=== PATIENT | male | born 1955 | race Caucasian/White ===

== ENCOUNTER 2018-07-06 14:28 | Outpatient (CLI) | payer MEDICARE, BC ==
--- NOTE | 2018-07-06 16:24 | MRI ---
RIGHT SHOULDER MRI WITHOUT IV CONTRAST: 07/06/18 HISTORY: Right shoulder pain limited and painful range of motion since falling out of his pickup truck. Multiplanar and multisequence MRI examination of the right shoulder is performed. AC joint arthrosis changes are noted with subchondral cystic changes and minimal undersurface spurrin g of the distal clavicle. There is some fluid and fat stranding in the subacromial and subdeltoid bur sa. There is a transverse full thickness near full width tear of the supraspinatus tendon but no sign ificant retraction. This tear appears to extend posteriorly into the infraspinatus tendon as a partia l thickness undersurface tear. There is associated delamination and a prominent myotendinous sentinel cyst of the supraspinatus. Evidence for a split type tear of the biceps tendon at the level of the u pper bicipital groove with thickening and increased signal in the intra-articular portion of the olimpia ps tendon at the biceps anchor. Evidence for significant tendinopathy. Undersurface tear of the subsc apularis tendon. IMPRESSION: Irregular full thickness, near full width tear of the supraspinatus tendon without significant retra ction with a small undersurface infraspinatus tendon tear with a prominent sentinel cyst of the supra spinatus myotendinous region. Split type tear of the biceps tendon at the upper bicipital groove with thickening and increased signal in the intra-articular region, evidence for associated tendinopathy . Undersurface tear of the subscapularis tendon. AC joint arthrosis. No acute osteochondral defect. POS: OFF
== END 2018-07-06 14:29 | disposition home or self-care (01) ==
LOC: BICMRI 14:28
PROVIDERS: ATTEND Orthopaedic Surgery
DX: M25.511 Pain in right shoulder (principal); M75.121 Complete rotator cuff tear or rupture of right shoulder, not specified as traumatic; S46.211A Strain of muscle, fascia and tendon of other parts of biceps, right arm, initial encounter

== ENCOUNTER 2018-07-13 11:49 | Outpatient (CLI) | payer MEDICARE, BC ==
[2018-07-13 13:39] LABS: #Basophils 0.1 thou/uL (0.0-0.2); #Eosinphils 0.5 thou/uL (0.0-0.7); #Lymphocytes 2.4 thou/uL (1.20-3.40); #Monocytes 0.7 thou/uL (0.11-0.59); #Neutrophils 4.4 thou/uL (1.40-6.50); %Basophils 0.8 % (0.0-1.0); %Eosinophils 6.2 % (0.0-10.0); %Lymphocytes 29.8 % (21.0-51.0); %Monocytes 8.9 % (0.0-10.0); %Neutrophils 54.3 % (42.0-75.0); Hemoglobin 14.4 g/dL (14.0-18.0); Mean Corpuscular HGB CONC 33.6 g/dL (32.0-36.0); Mean Corpuscular Hemoglobin 30.1 pg (27.0-31.0); Mean Corpuscular Volume 89.5 fL (78.0-98.0); Mean Platelet Volume 7.2 fL (7.4-10.4); Platelet Count 282 thou/uL (130-400); RBC Distribution Width 11.2 % (11.5-14.5); Red Blood Cell (RBC) Count 4.79 mill/uL (4.70-6.10); White Blood Cell (WBC) Count 8.1 thou/uL (4.8-10.8)
[2018-07-13 14:00] LABS: Anion Gap 13 mmol/L (10-20); BUN (Urea Nitrogen) 17 mg/dL (8.4-25.7); Calc. Creatinine Clearance 0 mL/min (70-130); Calcium 10.3 mg/dL (7.8-10.44); Carbon Dioxide 26 mmol/L (23-31); Chloride 104 mmol/L (98-107); Estimated GFR-MDRD 58; Glucose 97 mg/dL (80-115); Potassium 4.4 mmol/L (3.5-5.1); Sodium 139 mmol/L (136-145)
== END 2018-07-13 11:50 | disposition home or self-care (01) ==
LOC: LABBT 11:49
PROVIDERS: ATTEND Orthopaedic Surgery
DX: Z01.818 Encounter for other preprocedural examination (principal); M75.101 Unspecified rotator cuff tear or rupture of right shoulder, not specified as traumatic
CPT/HCPCS: 80048; 85025; 93005; 93010

== ENCOUNTER 2018-07-29 07:19 | Day surgery (SDC) | payer MEDICARE, BC ==
[2018-07-13 12:04] VITALS: BMI 32.3
[2018-07-29] MEDS ORDERED: Midazolam HCl 2 mg/2 ml Vial ONE (07:45)
[2018-07-29] MEDS ORDERED: Fentanyl 100 MCG/2 ML VIAL ONE (07:46)
[2018-07-29] MEDS ORDERED: CEFAZOLIN 2 GM/50 ML BAG ONE (08:16)
[2018-07-29] MEDS ORDERED: Zolpidem Tartrate 5 MG TAB PO PRN (09:01)
[2018-07-29] MEDS ORDERED: Ketorolac Tromethamine 30 MG/ML VIAL IVP PRN (09:01)
[2018-07-29] MEDS ORDERED: traMADol HCl 50 MG TAB PO PRN ×2 (09:01)
[2018-07-29] MEDS ORDERED: HYDROcodone/Acetaminophen 5/325 mg Tablet PO PRN ×2 (09:01)
[2018-07-29] MEDS ORDERED: Ondansetron PF 4 MG/2 ML Vial IVP PRN (09:01)
[2018-07-29] MEDS ORDERED: Promethazine HCl 25 MG/ML VIAL IM PRN (09:01)
[2018-07-29] MEDS ORDERED: Bupivacaine 0.5% 50 ML in Sodium Chloride 0.9% 50 ML NERVE BLCK SCH (09:01)
[2018-07-29] MEDS ORDERED: Ropivacaine 0.2% 550 ML 550 ML NERVE BLCK SCH (09:03)
[2018-07-29] MEDS ORDERED: Ropivacaine 0.5% HCl/PF (150 MG/30 ML VIAL) ONE (11:33)
[2018-07-29] MEDS ORDERED: Ropivacaine 0.2% HCl/PF 20 ML ONE (11:35)
--- NOTE | 2018-07-29 13:05 | OP ---
DATE OF PROCEDURE: 07/29/2018 PROCEDURE: Right shoulder arthroscopic rotator cuff repair. PREOPERATIVE DIAGNOSIS: possible biceps tendon tear. POSTOPERATIVE DIAGNOSIS: Intact biceps tendon, rotator cuff tear. ANESTHESIA: General. ESTIMATED BLOOD LOSS: Minimal. SPECIMENS: None. DRAINS: None. COMPLICATIONS: None. DESCRIPTION OF PROCEDURE: The patient was taken to the operating room, where general anesthesia was induced. The patient was placed in left lateral decubitus position. Right arm was placed in 15 pounds of traction, prepped and draped in usual sterile fashion. The scope was placed in the glenohumeral joint. He had no significant arthritis. He had a full-thickness rotator cuff tear. His biceps tendon was probed and appeared to be stable, so I left this alone. I did not see a need for biceps tenodesis. The scope for placed in the subacromial bursa and performed the subacromial bursectomy. CA ligament was taken down. The subacromial space was decompressed. I freshened the rotator cuff and I freshened the greater tuberosity. Two [place] suture anchors were placed at the greater tuberosity, passed the rotator cuff and tied down with a good watertight repair. Shoulder was then drained. Portals were closed with nylon suture. Sterile dressings were applied. Job ID: [id number]
[2018-07-29] MEDS ORDERED: PROPOFOL 200 MG/20 ML VIAL ONE (15:44)
[2018-07-29] MEDS ORDERED: Ketorolac Tromethamine 30 MG/ML VIAL ONE (15:44)
[2018-07-29] MEDS ORDERED: Glycopyrrolate 0.2 MG/ML 5 ML SYRINGE ONE (15:44)
[2018-07-29] MEDS ORDERED: Dexamethasone 20 MG/5 ML VIAL ONE (15:44)
[2018-07-29] MEDS ORDERED: Lidocaine 1% PF 5 ML VIAL ONE (15:44)
[2018-07-29] MEDS ORDERED: Ondansetron PF 4 MG/2 ML Vial ONE (15:44)
[2018-07-29] MEDS ORDERED: Rocuronium Bromide 10 MG/ML (10ML VIAL) ONE (15:44)
== END 2018-07-29 13:25 | disposition home or self-care (01) ==
LOC: SDC 07:19
PROVIDERS: ATTEND Orthopaedic Surgery
PROC: 0LM14ZZ Reattachment of Right Shoulder Tendon, Percutaneous Endoscopic Approach (ICD-10-PCS; principal; 2018-07-29)
PROC: 0RHJ44Z Insertion of Internal Fixation Device into Right Shoulder Joint, Percutaneous Endoscopic Approach (ICD-10-PCS; 2018-07-29)
DX: S46.011A Strain of muscle(s) and tendon(s) of the rotator cuff of right shoulder, initial encounter (principal); I10 Essential (primary) hypertension; E78.00 Pure hypercholesterolemia, unspecified; J30.9 Allergic rhinitis, unspecified; Z79.82 Long term (current) use of aspirin; Z79.899 Other long term (current) drug therapy; V89.9XXA Person injured in unspecified vehicle accident, initial encounter
CPT/HCPCS: 29827; 97139; A4306; J1100; J1885; J2001; J2250; J2405; J2704; J2795; J3010

== ENCOUNTER 2019-02-15 09:34 | Outpatient (CLI) | payer MEDICARE, BC ==
--- NOTE | 2019-02-15 10:56 | RAD ---
BIPHASIC ESOPHAGRAM: HISTORY: Dysphagia, unspecified FINDINGS: Swallowing was grossly normal. There is unobstructed flow of contrast through the esophagus into the stomach. No ulcer, stricture, mass or diverticulum is seen. IMPRESSION: Normal exam.
== END 2019-02-15 09:35 | disposition home or self-care (01) ==
LOC: RAD 09:34
PROVIDERS: ATTEND Otolaryngology Plastic Surgery within the Head & Neck
DX: R13.13 Dysphagia, pharyngeal phase (principal)
CPT/HCPCS: 74220

== ENCOUNTER 2019-07-26 09:31 | Outpatient (CLI) | payer MEDICARE, BC ==
--- NOTE | 2019-07-26 12:12 | MRI ---
MRI RIGHT KNEE PERFORMED WITHOUT CONTRAST ENHANCEMENT: Date: 07/26/2019 HISTORY: Medial knee pain for about a month. Patient states he slipped and twisted his knee. FINDINGS: The anterior, as well as posterior cruciate ligaments are intact. The lateral meniscus has a normal shape and appearance. There is a posterior horn medial meniscus tea r. This is a somewhat complex tear. It appears to have some portion of a radial component, but also a n undersurface flap-type tear extending into the body of the meniscus. The medial and lateral collateral ligaments and iliotibial band regions appear unremarkable. Patellar articular cartilage shows some mild articular cartilage fibrillation of the medial facet. Me dial and lateral patellar retinaculum and quadriceps and patellar tendons are normal. IMPRESSION: Somewhat complex appearing tear involving the posterior horn and body of the medial meniscus. POS: [facility]
== END 2019-07-26 09:32 | disposition home or self-care (01) ==
LOC: BICMRI 09:31
PROVIDERS: ATTEND Orthopaedic Surgery
DX: M23.91 Unspecified internal derangement of right knee (principal)

== ENCOUNTER 2019-08-10 08:05 | Outpatient (CLI) | payer MEDICARE, BC ==
--- NOTE | 2019-08-10 09:39 | RAD ---
CHEST PA AND LATERAL: HISTORY: Left chest wall pain. COMPARISON: Comparison is made to 02/08/2019. FINDINGS: Stable-appearing linear parenchymal changes noted in the left mid lung zone and right base. Heart si ze is within normal limits. No confluent pneumonia, overt edema, or pleural effusion. IMPRESSION: No significant acute intrathoracic disease. POS: [facility]
== END 2019-08-10 08:06 | disposition home or self-care (01) ==
LOC: RAD-FRANK 08:05
PROVIDERS: ATTEND Nurse Practitioner Family
DX: R07.89 Other chest pain (principal)
CPT/HCPCS: 71046

== ENCOUNTER 2020-10-31 07:22 | Day surgery (SDC) | payer MEDICARE, BC ==
[2020-10-30 14:18] VITALS: BMI 31.1
[2020-10-31] MEDS ORDERED: Fentanyl 100 MCG/2 ML VIAL ONE ×2 (08:49→10:04)
[2020-10-31] MEDS ORDERED: Midazolam HCl 2 mg/2 ml Vial ONE ×2 (08:49→10:04)
[2020-10-31] MEDS ORDERED: Ondansetron PF 4 MG/2 ML Vial ONE (10:25)
[2020-10-31] MEDS ORDERED: ePHEDrine Sulfate 50 MG/10 ML VIAL ONE (10:25)
[2020-10-31] MEDS ORDERED: PROPOFOL 200 MG/20 ML VIAL ONE (10:25)
[2020-10-31] MEDS ORDERED: Dexamethasone 20 MG/5 ML VIAL ONE (10:25)
[2020-10-31] MEDS ORDERED: Lidocaine 2% w/Epinephrine 1:200K 20 ML VIAL ONE (10:25)
[2020-10-31] MEDS ORDERED: Bupivacaine HCl 0.5%/Epinephrine 1:200,000/PF 30 ml Vial ONE (10:25)
== END 2020-10-31 14:00 | disposition home or self-care (01) ==
LOC: SDC 07:22
PROVIDERS: ATTEND Orthopaedic Surgery
PROC: 0SBD4ZZ Excision of Left Knee Joint, Percutaneous Endoscopic Approach (ICD-10-PCS; principal; 2020-10-31)
DX: S83.232A Complex tear of medial meniscus, current injury, left knee, initial encounter (principal); M22.42 Chondromalacia patellae, left knee; I10 Essential (primary) hypertension; E78.00 Pure hypercholesterolemia, unspecified; Z79.899 Other long term (current) drug therapy; Z88.2 Allergy status to sulfonamides
CPT/HCPCS: J0690; J1100; J2250; J2405; J2704; J3010

== ENCOUNTER 2022-01-20 14:00 | Outpatient (CLI) | payer MEDICARE, BC ==
[2020-10-28 14:28] LABS: #Basophils 0.1 10x3/uL (0.0-0.2); #Eosinphils 0.5 10x3/uL (0.0-0.5); #Monocytes 0.9 10x3/uL (0.0-1.1); #Neutrophils 3.5 10x3/uL (1.5-8.4); %Basophils 0.9 % (0.0-2.0); %Eosinophils 6.6 % (0.0-6.0); %Lymphocytes 33.8 % (18.0-47.0); %Monocytes 11.9 % (0.0-10.0); %Neutrophils 46.8 % (40.0-75.0); Hemoglobin 13.6 g/dL (13.5-17.5); Mean Corpuscular HGB CONC 33.7 g/dL (32.0-36.0); Mean Corpuscular Hemoglobin 29.5 pg (27.0-33.0); Mean Corpuscular Volume 87.4 fl (81.2-95.1); Mean Platelet Volume 10.4 fl (7.4-10.4); Platelet Count 253 10x3/uL (150-450); RBC Distribution Width 11.8 % (11.5-14.5); Red Blood Cell (RBC) Count 4.61 10x6/uL (4.32-5.72); White Blood Cell (WBC) Count 7.4 10x3/uL (3.5-10.5)
[2020-10-28 14:42] LABS: Anion Gap 13 mmol/L (10-20); BUN (Urea Nitrogen) 16 mg/dL (8.4-25.7); Calc. Creatinine Clearance 0 mL/min (70-130); Calcium 10.4 mg/dL (7.8-10.44); Carbon Dioxide 23 mmol/L (23-31); Chloride 110 mmol/L (98-107); Glucose 92 mg/dL (80-115); Potassium 4.2 mmol/L (3.5-5.1); Sodium 142 mmol/L (136-145)
== END 2022-01-20 23:59 | disposition home or self-care (01) ==
LOC: CTENTCT 14:00
PROVIDERS: ATTEND Specialist
DX: J32.9 Chronic sinusitis, unspecified (principal)
CPT/HCPCS: 80048; 85025; 93005; U0003; U0005; 70486; 93010